=== PATIENT | male | born 1950 | race Hispanic/Latino ===

== ENCOUNTER 2024-01-28 06:18 | Day surgery (SDC) | payer OTHER ==
[2024-01-26 09:15] LABS: BASOPHILS # (AUTO) 0.1 (0.0-0.1); BASOPHILS % 1.4 % (0.0-1.0); EOSINOPHILS # (AUTO) 0.7 (0.0-0.4); EOSINOPHILS % 8.9 % (0.0-6.0); HEMATOCRIT 45.6 % (38.2-49.6); HEMOGLOBIN 14.7 g/dL (14.0-18.0); LYMPHOCYTES # (AUTO) 2.1 (1.0-3.2); LYMPHOCYTES % 27.7 % (18.0-39.1); MEAN CORPUSCULAR HEMOGLOBIN 29.6 pg (28-32); MEAN CORPUSCULAR HGB CONC 32.2 g/dL (31-35); MEAN CORPUSCULAR VOLUME 91.9 fL (81-99); MONOCYTES # (AUTO) 0.5 (0.2-0.8); MONOCYTES % 6.9 % (4.4-11.3); NEUTROPHILS # (AUTO) 4.2 (2.1-6.9); NEUTROPHILS % 54.7 % (38.7-80.0); RED BLOOD COUNT 4.96 x10e6/uL (4.3-5.7); RED CELL DISTRIBUTION WIDTH 12.6 % (11.7-14.4); WHITE BLOOD COUNT 7.64 x10e3/uL (4.8-10.8)
[2024-01-26 09:19] LABS: PLATELET COUNT 151 x10e3/uL (140-360)
[2024-01-26 09:27] LABS: INR 0.99; PROTHROMBIN TIME 13.6 seconds (11.9-14.5)
[2024-01-26 09:46] LABS: ALBUMIN 3.7 g/dL (3.5-5.0); ALBUMIN/GLOBULIN RATIO 1.1 (0.8-2.0); ANION GAP 13.9 mmol/L (8-16); BILIRUBIN,TOTAL 0.5 mg/dL (0.2-1.2); CHOL/HDL RATIO 2.8 (3.9-4.7); CREATININE, SERUM 1.02 mg/dL (0.72-1.25); POTASSIUM 3.9 mmol/L (3.5-5.1); TOTAL PROTEIN 7.1 g/dL (6.5-8.1)
[2024-01-28] VITALS (12 sets, daily range): BP systolic 109–152; BP diastolic 61–75; PULSE 49–58; RESP 15–20; TEMP 96.9; O2SAT 96–100
[~2024-01-28] VITALS: Ht 177.8 cm; Wt 99.8 kg
[~2024-01-28 06:18] MED LIST: ASPIRIN81 MG PO; COREG6.25 MG PO; EFFIENT10 MG PO; ENTRESTO 24 MG1 EACH; ISOSORBIDE MONO30 MG PO; LEVOTHYROXINE50 MCG PO; LIPITOR20 MG PO; NITROGLYCERIN0.4 MG SL
[2024-01-28] MEDS ORDERED: HEPARIN SOD (PORCINE) 1000 UNIT/ML 30ML ONE (06:42)
[2024-01-28] MEDS ORDERED: IOPAMIDOL 370 MG/ML 100 ML INFUS..BTL INJ ONE (06:42)
[2024-01-28] MEDS ORDERED: HEPARIN SOD/SOD CHLORIDE 2,000 ML ONE (06:42)
[2024-01-28] MEDS ORDERED: VERAPAMIL HCL 2.5 MG/ML 2 ML VIAL ONE (06:42)
[2024-01-28] MEDS ORDERED: LIDOCAINE HCL 2% LOCAL 20 ML VIAL ONE (06:42)
[2024-01-28] MEDS ORDERED: SODIUM CHLORIDE 0.9% 1000ML 1,000 ML ONE (06:42)
[2024-01-28] MEDS ORDERED: NITROGLYCERIN/D5W 200 MCG/ML 250 ML ONE (06:43)
[2024-01-28] MEDS ORDERED: MIDAZOLAM HCL 2 MG/2 ML VIAL ONE ×2 (07:27→08:09)
[2024-01-28] MEDS ORDERED: FENTANYL CITRATE/PF 100MCG/2 ML INJ ONE (07:27)
[2024-01-28] MEDS ORDERED: PRASUGREL 10 MG TAB ONE (08:15)
[2024-01-28] MEDS ORDERED: ASPIRIN 325 MG TAB ONE (08:15)
== END 2024-01-28 11:00 | disposition home or self-care (01) ==
LOC: CATH LAB 06:18
PROVIDERS: ATTEND Internal Medicine Cardiovascular Disease
DX: I25.10 Atherosclerotic heart disease of native coronary artery without angina pectoris (principal); I11.0 Hypertensive heart disease with heart failure; I50.9 Heart failure, unspecified; E78.5 Hyperlipidemia, unspecified; E07.9 Disorder of thyroid, unspecified; Z95.5 Presence of coronary angioplasty implant and graft; Z01.812 Encounter for preprocedural laboratory examination; Z79.82 Long term (current) use of aspirin; Z79.899 Other long term (current) drug therapy; Z68.31 Body mass index [BMI] 31.0-31.9, adult; Z82.49 Family history of ischemic heart disease and other diseases of the circulatory system
CPT/HCPCS: 36415; 76937; 80053; 80061; 85025; 85610; 92928; 93458; C1725 ×2; C1874; C1887; C1894; J1644; J2003; J2250; J3010; J7030; Q9967; 99152; 99153